=== PATIENT | male | born 1950 | race Hispanic/Latino ===

== ENCOUNTER 2022-09-26 07:00 | Outpatient (RCR) | payer MEDICARE | END 2022-09-27 | LOC: PT 07:00 | PROVIDERS: ATTEND Physician Assistant | DX: M75.101 Unspecified rotator cuff tear or rupture of right shoulder, not specified as traumatic (principal) ==

== ENCOUNTER 2022-10-24 07:00 | Outpatient (RCR) | payer MEDICARE | END 2022-10-27 | LOC: PT 07:00 | PROVIDERS: ATTEND Physician Assistant | DX: M75.101 Unspecified rotator cuff tear or rupture of right shoulder, not specified as traumatic (principal) ==